=== PATIENT | female | born 1965 | race American Indian/Alaskan Native ===

== ENCOUNTER 2016-12-07 11:21 | Emergency (ER) | payer SELFPAY ==
[2016-12-07 11:35] VITALS: BP 129/81
--- NOTE | 2016-12-07 12:46 | Emergency Department Report ---
ED Female HPI - General Chief complaint: Urogenital-Female Stated complaint: POSS KIDNEY INFECTION Time Seen by Provider: 12/07/16 12:45 Source: patient, family Mode of arrival: Ambulatory Limitations: No Limitations - History of Present Illness Initial comments: Patient here reports that she had a UTI last month and she took some clindamycin that she had left over from home, but it didn't help. She says she thinks she have repeat returned urinary tract infection. Patient says she's having urinary burning and lower back pain. Denies any nausea vomiting. Denies any vaginal bleeding or discharge. She last menstrual period was 2016 and patient said she had her tubes cut tired and burned. She says she was having some abdominal cramping that comes and goes is located to her left lower abdominal quadrant. The pressure but now she is not having any pain at present. Denies any pain to her flank. When asked, she is able to tolerate fluids well. Denies any fever or chills. Denies any history of kidney stones MD Complaint: dysuria Onset/Timin -: month(s) Location: other (back and left lower quadrant of abdomen) Radiation: non-radiating Severity scale (0 -10): 0 Consistency: intermittent Improves with: none Worsens with: urination (pain with urinating) Are you Now?: No Associated Symptoms: abdominal pain (comes and goes and she is not having any at present.), dysuria. denies: vaginal discharge, vaginal bleeding, nausea/ vomiting, fever/chills, headaches, loss of appetite, hematuria, rash, seizure, shortness of breath, syncope, weakness - Related Data Sexually active: No Previous Rx's Medication Instructions Recorded Last Taken Type Nitrofurantoin [place]/M-Cryst 100 mg PO Q12HR #14 capsule 12/07/16 Unknown Rx [Macrobid CAP] Phenazopyridine [Pyridium] 100 mg PO TID PRN #9 tab 12/07/16 Unknown Rx Allergies Allergy/AdvReac Type Severity Reaction Status Date / Time No Known Allergies Allergy Verified 12/07/16 11:36 ED Review of Systems ROS: Stated complaint: POSS KIDNEY INFECTION Other details as noted in HPI Comment: All other systems reviewed and negative Constitutional: denies: chills, fever ENT: denies: throat pain Respiratory: no symptoms reported Cardiovascular: denies: chest pain, palpitations, edema, syncope Gastrointestinal: abdominal pain (occasional). denies: nausea, vomiting, diarrhea, constipation Genitourinary: dysuria. denies: urgency, frequency Musculoskeletal: back pain. denies: arthralgia Skin: denies: rash Neurological: denies: headache, weakness, numbness, paresthesias, confusion, abnormal gait, vertigo ED Past Medical Hx - Past Medical History Previous Medical History?: No - Surgical History Past Surgical History?: Yes Additional Surgical History: - Social History Smoking Status: Current Every Day Smoker Substance Use Type: None - Medications Home Medications: Home Medications Medication Instructions Recorded Confirmed Last Taken Type Nitrofurantoin [place]/M-Cryst 100 mg PO Q12HR #14 capsule 12/07/16 Unknown Rx [Macrobid CAP] Phenazopyridine [Pyridium] 100 mg PO TID PRN #9 tab 12/07/16 Unknown Rx ED Physical Exam - General Limitations: No Limitations General appearance: alert, in no apparent distress - Head Head exam: Present: atraumatic, normocephalic, normal inspection - Eye Eye exam: Present: normal appearance, PERRL, EOMI. Absent: periorbital swelling , periorbital tenderness Pupils: Present: normal accommodation - ENT ENT exam: Present: normal exam, normal orophraynx, mucous membranes moist, TM's normal bilaterally, normal external ear exam - Neck Neck exam: Present: normal inspection, full ROM. Absent: tenderness, meningismus, lymphadenopathy - Respiratory Respiratory exam: Present: normal lung sounds bilaterally. Absent: respiratory distress, chest wall tenderness - Cardiovascular Cardiovascular Exam: Present: regular rate, normal rhythm, normal heart sounds - GI/Abdominal GI/Abdominal exam: Present: soft, normal bowel sounds. Absent: distended, tenderness, guarding, rebound, rigid - Extremities Exam Extremities exam: Present: normal inspection, full ROM, normal capillary refill. Absent: tenderness, pedal edema, joint swelling, calf tenderness - Back Exam Back exam: Present: normal inspection, full ROM. Absent: tenderness, CVA tenderness (R), CVA tenderness (L), muscle spasm, paraspinal tenderness, vertebral tenderness, rash noted - Neurological Exam Neurological exam: Present: alert, oriented X3, normal gait - Psychiatric Psychiatric exam: Present: normal affect, normal mood - Skin Skin exam: Present: warm, dry, intact, normal color. Absent: rash ED Course Vital Signs 12/07/16 11:32 Temperature 98.6 F Pulse Rate 83 Respiratory 16 Rate Blood Pressure 129/81 O2 Sat by Pulse 97 Oximetry - Reevaluation(s) Reevaluation #1: 12/07/16 14:28 Patient stable discharged home in stable condition. ED Medical Decision Making - Lab Data Lab Results 12/07/16 Range/Units Unknown Urine Color Yellow (Yellow) Urine Turbidity Slightly-cloudy (Clear) Urine pH 5.0 (5.0-7.0) Ur Specific [place] 1.017 (1.003-1.030) Urine Protein <15 mg/dl (Negative) mg/dL Urine Glucose (UA) Neg (Negative) mg/dL Urine Ketones Neg (Negative) mg/dL Urine Blood Sm (Negative) Urine Nitrite Neg (Negative) Urine Bilirubin Neg (Negative) Urine Urobilinogen < 2.0 (<2.0) mg/dL Ur Leukocyte Esterase Lg (Negative) Urine WBC (Auto) 14.0 H (0.0-6.0) /HPF Urine RBC (Auto) 14.0 (0.0-6.0) /HPF U Epithel Cells (Auto) 3.0 (0-13.0) /HPF Urine Bacteria (Auto) 4+ (Negative) /HPF Urine Mucus Few /HPF Urine culture pending - Medical Decision Making ED course: I discussed patient that she has a urinary tract infection and will be treated with antibiotic. I Discussed with her She has urinary burning and that she should get a urine test done and not to try to do home treatment. Patient was understanding of discharge diagnosis and treatment plan. Discharged home with her family with prescription for Macrobid and Pyridium. Patient is stable and able to tolerate fluids. Critical care attestation.: If time is entered above; I have spent that time in minutes in the direct care of this critically ill patient, excluding procedure time. ED Disposition Clinical Impression: Acute cystitis with hematuria, Dysuria Lower back pain Qualifiers: Chronicity: acute Back pain laterality: bilateral Sciatica presence: without sciatica Qualified Code(s): M54.5 - Low back pain Disposition: DISCHARGED TO HOME OR SELFCARE Is pt being admited?: No Does the pt Need Aspirin: No Condition: Stable Instructions: Urinary Tract Infection in Children (ED), Low Back Strain (ED), Dysuria (ED) Additional Instructions: increase fluid intake to 2-3 hours per day. F/U with primary care in 3-5 days. Take antibiotic as prescribed Prescriptions: Nitrofurantoin [place]/M-Cryst [Macrobid CAP] 100 mg PO Q12HR #14 capsule Phenazopyridine [Pyridium] 100 mg PO TID PRN #9 tab PRN Reason: URINE BURNING Referrals: PRIMARY CARE,MD [Primary Care Provider] - 3-5 Days [facility] [Outside] - 3-5 Days Forms: Work/School Release Form(ED), Accompanied Note
[2016-12-07 12:49] LABS: Bacteria,Urine 4+ /HPF (Negative); Bilirubin,Urine NEG (Negative); Blood,Urine SM (Negative); Ketones,Urine NEG (Negative); Leukocyte Esterase,Urine LG (Negative); Mucus,Urine FEW /HPF; Nitrite,Urine NEG (Negative); Protein,Urine <15 mg/dL mg/dL (Negative); Urobilinogen,Urine < 2.0 mg/dL (<2.0)
== END 2016-12-07 14:30 | disposition home or self-care (01) ==
LOC: ED 11:21
DX: N30.01 Acute cystitis with hematuria (principal); R30.0 Dysuria; M54.5 Low back pain; F17.200 Nicotine dependence, unspecified, uncomplicated
CPT/HCPCS: 81001; 87086; 99283

== ENCOUNTER 2017-09-20 10:50 | Outpatient (CLI) | payer OTHER ==
--- NOTE | 2017-09-20 11:32 | Mammography Report ---
BILATERAL MAMMOGRAM: FINDINGS: The breast tissue is heterogeneously dense, which could obscure detection of small masses (approximately 50%-75% glandular). No mass, distortion, suspicious calcification, or skin change is seen. Location of prior mammogram is not known. CAD was utilized. IMPRESSION: Negative mammogram. There is no mammographic evidence of malignancy. RECOMMENDATION: Follow-up per ACS guidelines. BI-RADS CATEGORY: 1 = Negative ACR BI-RADS MAMMOGRAPHIC CODES: 0 = Needs additional imaging evaluation; 1 = Negative; 2 = Benign; 3 = Probably benign; 4 = Suspicious; 5 = Malignant; 6 = Known biopsy-proven malignancy COMMENT: 1. Dense breast tissue, i.e., adenosis, fibrocystic changes, etc., may obscure an underlying neoplasm. 2. Approximately 10% of cancers are not detected with mammography. 3. A negative mammography report should not delay biopsy if a clinically suspicious mass is present. COMMENT: Patient follow-up letters are generated in [employer]
== END 2017-09-20 10:51 | disposition home or self-care (01) ==
LOC: SPVWC 10:50
PROVIDERS: ATTEND Family Medicine
DX: Z12.31 Encounter for screening mammogram for malignant neoplasm of breast (principal); F17.200 Nicotine dependence, unspecified, uncomplicated
CPT/HCPCS: 77067

== ENCOUNTER 2020-05-02 11:44 | Emergency (ER) | payer SELFPAY ==
[2020-05-02 12:41] VITALS: BP 136/94
--- NOTE | 2020-05-02 14:00 | Emergency Department Report ---
ED General Adult HPI - General Chief complaint: High BP Stated complaint: BP HIGH Time Seen by Provider: 05/02/20 13:34 Source: patient Mode of arrival: Ambulatory Limitations: No Limitations - History of Present Illness Initial comments: This is a pleasant 54-year-old female who presents the emergency department the chief complaint of elevated blood pressure reading today. She reports she started to feel some pressure in her head which she will have when she gets elevated blood pressure and checked it and it was 160/108. She states she had a salty meal prior to this and was concerned this may have elevated her blood pressure she came to the emergency department. She now states she is asymptomatic with no headache, dizziness, blurry vision, nausea, vomiting, diarrhea, chest pain, shortness of breath or any other associated symptoms. She is not currently on any blood pressure medication does not a primary care doctor at this time. - Related Data Previous Rx's Medication Instructions Recorded Last Taken Type Nitrofurantoin [place]/M-Cryst 100 mg PO Q12HR #14 capsule 12/07/16 Unknown Rx [Macrobid CAP] Phenazopyridine [Pyridium] 100 mg PO TID PRN #9 tab 12/07/16 Unknown Rx Allergies Allergy/AdvReac Type Severity Reaction Status Date / Time No Known Allergies Allergy Verified 12/07/16 11:36 ED Review of Systems ROS: Stated complaint: BP HIGH Other details as noted in HPI Comment: All other systems reviewed and negative Constitutional: denies: chills, fever Eyes: denies: eye pain, eye discharge, vision change ENT: denies: ear pain, throat pain Respiratory: denies: cough, shortness of breath, wheezing Cardiovascular: denies: chest pain, palpitations Endocrine: no symptoms reported Gastrointestinal: denies: abdominal pain, nausea, diarrhea Genitourinary: denies: urgency, dysuria, discharge Musculoskeletal: denies: back pain, joint swelling, arthralgia Skin: denies: rash, lesions Neurological: denies: headache, weakness, paresthesias Psychiatric: denies: anxiety, depression Hematological/Lymphatic: denies: easy bleeding, easy bruising ED Past Medical Hx - Past Medical History Hx Hypertension: Yes - Surgical History Past Surgical History?: Yes Additional Surgical History: - Social History Smoking Status: Current Every Day Smoker Substance Use Type: None - Medications Home Medications: Home Medications Medication Instructions Recorded Confirmed Last Taken Type Nitrofurantoin [place]/M-Cryst 100 mg PO Q12HR #14 capsule 12/07/16 Unknown Rx [Macrobid CAP] Phenazopyridine [Pyridium] 100 mg PO TID PRN #9 tab 12/07/16 Unknown Rx ED Physical Exam - General Limitations: No Limitations General appearance: alert, in no apparent distress - Head Head exam: Present: atraumatic, normocephalic - Eye Eye exam: Present: normal appearance, PERRL, EOMI Pupils: Present: normal accommodation - ENT ENT exam: Present: normal exam, normal orophraynx, mucous membranes moist - Neck Neck exam: Present: normal inspection, full ROM. Absent: tenderness, meningismus - Respiratory Respiratory exam: Present: normal lung sounds bilaterally. Absent: respiratory distress, wheezes, rales, rhonchi, stridor - Cardiovascular Cardiovascular Exam: Present: regular rate, normal rhythm, normal heart sounds. Absent: systolic murmur, diastolic murmur, rubs, gallop - GI/Abdominal GI/Abdominal exam: Present: soft, normal bowel sounds. Absent: distended, tenderness, guarding, rebound, rigid - Extremities Exam Extremities exam: Present: normal inspection, full ROM, normal capillary refill. Absent: tenderness, calf tenderness - Back Exam Back exam: Present: normal inspection, full ROM. Absent: tenderness, CVA tenderness (R), CVA tenderness (L) - Neurological Exam Neurological exam: Present: alert, oriented X3, CN II-XII intact, normal gait. Absent: motor sensory deficit - Psychiatric Psychiatric exam: Present: normal affect, normal mood - Skin Skin exam: Present: warm, dry, intact, normal color. Absent: rash ED Course Vital Signs 05/02/20 12:34 Temperature 98.3 F Pulse Rate 80 Respiratory 18 Rate Blood Pressure 136/94 O2 Sat by Pulse 98 Oximetry ED Medical Decision Making - Medical Decision Making Patient nontoxic in no acute distress. She is completely asymptomatic at this time. Educated the patient about DASH diet and diet and exercise with lifestyle modifications. Will refer her to primary care doctor and recommended she take her blood pressure to 3 times a day and write this down to get a trend for her blood pressure for the primary care doctor to determine if she requires medication or not. Recommend she return the emerge department any change or worsening symptoms. She verbalized understanding the diagnosis, treatment plan and follow-up instructions and all of her questions were answered. - Differential Diagnosis Asymptomatic hypertension, sinus infection, Critical care attestation.: If time is entered above; I have spent that time in minutes in the direct care of this critically ill patient, excluding procedure time. ED Disposition Clinical Impression: Asymptomatic hypertension Disposition: TO HOME OR SELFCARE Is pt being admited?: No Condition: Stable Instructions: Hypertension (ED) Referrals: PRIMARY MD MARCELA [Primary Care Provider] - 3-5 Days YFN VELAZQUEZ MD [Staff Physician] - 3-5 Days [facility] [Provider Group] - 3-5 Days Time of Disposition: 14:00
== END 2020-05-02 14:06 | disposition home or self-care (01) ==
LOC: ED 11:44
DX: I10 Essential (primary) hypertension (principal); F17.200 Nicotine dependence, unspecified, uncomplicated; Z79.899 Other long term (current) drug therapy
CPT/HCPCS: 99282

== ENCOUNTER 2021-02-27 12:04 | Emergency (ER) | payer SELFPAY ==
[2021-02-27 12:46] VITALS: BP 143/71
--- NOTE | 2021-02-27 15:13 | Emergency Department Report ---
<JAKE PAT - Last Filed: 02/27/21 15:47> ED General Adult HPI - General Chief complaint: Abdominal Pain Stated complaint: PRESSURE IN HEAD /ABDOMIN Time Seen by Provider: 02/27/21 14:26 Source: patient Mode of arrival: Ambulatory Limitations: No Limitations - History of Present Illness Initial comments: 55-year-old -[place] female patient presents with complaints of right- sided abdominal pain x2 weeks. She describes the pain as a pressure like feeling and rates it as 8/10 in severity. She states the pain is worse in her right upper abdomen. She also admits to urinary frequency, but denies any dysuria/hematuria, vaginal discharge/dyspareunia, vaginal bleeding, nausea/vomiting/diarrhea, constipation, melena/hematochezia, or fever/chills/sweats. Pain seems to worsen with deep inhalation and pressure to the abdomen. No changes in pain with eating per patient. Past abdominal surgical history includes a . Patient also reports that she has history of fibroids and has a Mirena in place to control the bleeding, however she was supposed to have the Mirena removed in August. Severity scale (0 -10): 8 - Related Data Previous Rx's Medication Instructions Recorded Last Taken Type Nitrofurantoin [place]/M-Cryst 100 mg PO Q12HR #14 capsule 12/07/16 Unknown Rx [Macrobid CAP] Phenazopyridine [Pyridium] 100 mg PO TID PRN #9 tab 12/07/16 Unknown Rx Allergies Allergy/AdvReac Type Severity Reaction Status Date / Time No Known Allergies Allergy Verified 12/07/16 11:36 ED Review of Systems Constitutional: denies: chills, diaphoresis, fever, malaise Respiratory: denies: cough, shortness of breath Cardiovascular: denies: chest pain Gastrointestinal: denies: nausea, vomiting, diarrhea, constipation, hematemesis, melena, hematochezia Musculoskeletal: denies: back pain Skin: denies: change in color ED Past Medical Hx - Past Medical History Previous Medical History?: Yes Hx Hypertension: Yes - Surgical History Past Surgical History?: Yes Additional Surgical History: - Social History Smoking Status: Current Every Day Smoker Substance Use Type: None - Medications Home Medications: Home Medications Medication Instructions Recorded Confirmed Last Taken Type Nitrofurantoin [place]/M-Cryst 100 mg PO Q12HR #14 capsule 12/07/16 Unknown Rx [Macrobid CAP] Phenazopyridine [Pyridium] 100 mg PO TID PRN #9 tab 12/07/16 Unknown Rx ED Physical Exam - General Limitations: No Limitations General appearance: alert, in no apparent distress - Head Head exam: Present: atraumatic, normocephalic - Respiratory Respiratory exam: Present: normal lung sounds bilaterally. Absent: respiratory distress - Cardiovascular Cardiovascular Exam: Present: regular rate, normal rhythm - GI/Abdominal GI/Abdominal exam: Present: soft, tenderness (Right-sided abdomen, right upper quadrant, mild right lower quadrant), normal bowel sounds. Absent: distended, guarding, rebound, rigid - Back Exam Back exam: Absent: CVA tenderness (R), CVA tenderness (L) - Neurological Exam Neurological exam: Present: alert, oriented X3, normal gait - Psychiatric Psychiatric exam: Present: normal affect, normal mood - Skin Skin exam: Present: warm, dry, intact, normal color. Absent: rash ED Medical Decision Making - Medical Decision Making 55-year-old -[place] female patient presents with complaints of right- sided abdominal pain x2 weeks. She describes the pain as a pressure like feeling and rates it as 8/10 in severity. She states the pain is worse in her right upper abdomen. She also admits to urinary frequency, but denies any dysuria/hematuria, vaginal discharge/dyspareunia, vaginal bleeding, nausea/vomiting/diarrhea, constipation, melena/hematochezia, or fever/chills/sweats. Pain seems to worsen with deep inhalation and pressure to the abdomen. No changes in pain with eating per patient. Past abdominal surgical history includes a . Patient also reports that she has history of fibroids and has a Mirena in place to control the bleeding, however she was supposed to have the Mirena removed in August. CBC is normal. No rebound or guarding of abdomen on exam. UA also negative for UTI. Chest x-ray is normal. Right upper quadrant ultrasound pending. Patient is nontoxic-appearing at this time. Patient handed over to Ariadna Moreno PA-C pending imaging and remaining labs. ED Disposition Clinical Impression: Nonspecific abdominal pain Disposition: TO HOME OR SELFCARE Is pt being admited?: No Condition: Stable Instructions: Abdominal Pain, Adult, [id number], Abdominal Pain (ED) Additional Instructions: Take Tylenol every 4 hours and Motrin every 8 hours as needed for pain. Apply heating pad to affected area as needed for pain. Rest. Drink plenty of fluids. Follow-up with primary care provider this week. Call tomorrow to schedule an appointment. See referral information below. Return to the emergency department immediately for new or worsening symptoms. Specifically, return to the emergency department immediately for fever, vomiting, worsening pain, black/bloody stools, or any other concerns. Referrals: CLAUDE MEDRANO MD [Primary Care Provider] - 3-5 Days YFN VELAZQUEZ MD [Staff Physician] - 3-5 Days [facility] [Provider Group] - 3-5 Days <ARIADNA MORENO - Last Filed: 02/27/21 17:35> ED Review of Systems ROS: Stated complaint: PRESSURE IN HEAD /ABDOMIN Other details as noted in HPI ED Course Vital Signs 02/27/21 12:42 Temperature 98.3 F Pulse Rate 80 Respiratory 18 Rate Blood Pressure 143/71 [Right] O2 Sat by Pulse 98 Oximetry ED Medical Decision Making - Lab Data Result diagrams: 02/27/21 15:25 02/27/21 15:25 - Medical Decision Making Care of patient transferred by Jake Pat PA-C at shift change pending ultrasound results. On reevaluation, patient is stable. She is afebrile, well- hydrated, tolerating oral intake without difficulty. Ultrasound of the abdomen within normal limits. Labs are unremarkable. Chest x-ray is negative. No clinical indication for further diagnostic work-up on an emergent basis at this time. Patient will be discharged home to follow-up with primary care provider on an outpatient basis. Patient expressed understanding and is agreeable to plan of care. Strict return precautions provided. History, exam, diagnostic testing, and current condition do not suggest worrisome pathology to warrant further testing, continued ED treatment, admission, or surgical evaluation at this point. Given the low probability of a significant medical illness, it would be more likely to result in harm than benefit to perform further testing at this stage. Discussed findings, presumptive diagnosis, need for follow-up and specific signs/symptoms that should prompt immediate return to the emergency department. Instructions were explained in detail to the patient in addition to giving written discharge information. Patient expressed understanding and was given the opportunity to ask questions, all of which were satisfactorily answered prior to discharge home. Critical care attestation.: If time is entered above; I have spent that time in minutes in the direct care of this critically ill patient, excluding procedure time. ED Disposition Is pt being admited?: No Does the pt Need Aspirin: No Time of Disposition: 17:35
[2021-02-27 15:18] LABS: Bacteria,Urine 1+ /HPF (Negative); Bilirubin,Urine NEG (Negative); Blood,Urine NEG (Negative); Color,Urine Yellow (Yellow); Mucus,Urine FEW /HPF; Protein,Urine <15 mg/dL mg/dL (Negative); Urobilinogen,Urine < 2.0 mg/dL (<2.0)
--- NOTE | 2021-02-27 15:28 | XRay Report ---
CHEST 2 VIEWS INDICATION: RLL pain with inspiration. COMPARISON: None FINDINGS: Support devices: None. Heart: Within normal limits. Lungs/pleura: No acute air space or interstitial disease. No pneumothorax. Additional findings: None. IMPRESSION: No acute findings. Normal chest x-ray. Signer Name: Miguel De León Jr, MD Signed: 02/27/2021 3:24 PM Workstation Name: [id number]
[2021-02-27 15:51] LABS: Basophils % (Auto) 0.3 % (0.0-1.8); Hematocrit 44.5 % (30.3-42.9); Hemoglobin 15.3 gm/dl (10.1-14.3); Lymphocytes % (Auto) 49.3 % (13.4-35.0); Mean Corpuscular HGB Conc 34 % (30-34); Mean Corpuscular Volume 87 fl (79-97); Monocytes # (Auto) 0.4 K/mm3 (0.0-0.8); Monocytes % (Auto) 6.1 % (0.0-7.3); Platelet Count 230 K/mm3 (140-440)
[2021-02-27 16:14] LABS: Alanine Aminotransferase 40 units/L (7-56); Albumin 4.9 g/dL (3.9-5); Blood Urea Nitrogen 11 mg/dL (7-17); Calcium 10.4 mg/dL (8.4-10.2); Hemolysis Index 12
[2021-02-27 16:25] LABS: BUN/Creatinine Ratio 16
--- NOTE | 2021-02-27 17:24 | Ultrasound Report ---
LIMITED RUQ ABDOMINAL ULTRASOUND INDICATION: RUQ pain. COMPARISON: No relevant prior imaging study available. FINDINGS: Pancreas: Visualized portions show no significant abnormality. Abdominal Aorta: No significant abnormality. IVC: No significant abnormality. Liver: No significant abnormality. Normal hepatopedal blood flow in the main portal vein. Gallbladder: No significant abnormality. Bile ducts: No significant abnormality. Common bile duct measures 5 mm. Right kidney: No significant abnormality visualized.. Free fluid: None. Additional Findings: None. IMPRESSION: 1. Normal exam. Signer Name: Darshan Larson MD Signed: 02/27/2021 5:19 PM Workstation Name: [id number]
== END 2021-02-27 17:44 | disposition home or self-care (01) ==
LOC: ED 12:04
DX: R10.9 Unspecified abdominal pain (principal); I10 Essential (primary) hypertension; F17.200 Nicotine dependence, unspecified, uncomplicated; Z98.890 Other specified postprocedural states; Z79.899 Other long term (current) drug therapy
CPT/HCPCS: 36415; 71046; 76705; 80053; 81001; 83690; 85025

== ENCOUNTER 2022-02-19 10:32 | Emergency (ER) | payer SELFPAY ==
[2022-02-19 11:47] VITALS: BP 139/89
== END 2022-02-20 09:03 | disposition left against medical advice (07) ==
LOC: ED 10:32
DX: J11.1 Influenza due to unidentified influenza virus with other respiratory manifestations (principal); Z53.21 Procedure and treatment not carried out due to patient leaving prior to being seen by health care provider